=== PATIENT | female | born 1975 | race Caucasian/White ===

== ENCOUNTER 2018-12-04 21:42 | Emergency (ER) | payer SELFPAY ==
--- NOTE | 2018-12-04 21:59 | EDM.PDOC ---
ED HPI GENERAL MEDICAL PROBLEM - General Stated Complaint: BODYACHES AND COUGHING Time Seen by Provider: 12/04/18 21:44 Source of Information: Reports: Patient History Limitations: Reports: No Limitations - History of Present Illness INITIAL COMMENTS - FREE TEXT/NARRATIVE: HISTORY AND PHYSICAL: History of present illness: Patient is a 43-year-old female who presents to the emergency room with complaints of cough, body aches and generally feeling unwell 1 week. Patient does have a past medical history of asthma and is currently a half pack per day smoker. She states she has been taking cough and cold medication along with Mucinex and not getting much relief. She states she has been very tearful as the coughing is painful. Patient denies any fever, chills, headache, change in vision, syncope or near syncope. Denies any chest pain, back pain, shortness of breath. Denies any abdominal pain, nausea, vomiting, diarrhea, constipation or dysuria. Has not noted any blood in urine or stool. Review of systems: As per history of present illness and below otherwise all systems reviewed and negative. Past medical history: As per history of present illness and as reviewed below otherwise noncontributory. Surgical history: As per history of present illness and as reviewed below otherwise noncontributory. Social history: See social history for further information Family history: As per history of present illness and as reviewed below otherwise noncontributory. Physical exam: General: Well-developed and well nourished 43-year-old female. Alert and oriented. Nontoxic appearing and in no acute distress. HEENT: Atraumatic, normocephalic, pupils equal and reactive bilaterally, negative for conjunctival pallor or scleral icterus, mucous membranes moist, TMs normal bilaterally, throat clear, neck supple, nontender, trachea midline. No drooling or trismus noted. No meningeal signs. No hot potato voice noted. Lungs: Clear to auscultation, breath sounds equal bilaterally, chest nontender. Dry harsh nonproductive cough is noted. Heart: S1S2, regular rate and rhythm without overt murmur Abdomen: Soft, nondistended, nontender. Negative for masses or hepatosplenomegaly. Negative for costovertebral tenderness. Skin: Intact, warm, dry. No lesions or rashes noted. Extremities: Atraumatic, moves all extremities per self without difficulty or deficits, negative for cords or calf pain. Neurovascular unremarkable. Neuro: Awake, alert, oriented. Cranial nerves II through XII unremarkable. Cerebellum unremarkable. Motor and sensory unremarkable throughout. Exam nonfocal. Notes: Influenza screening and chest x-ray are negative. We discussed following up with their primary care provider. Supportive care measures were reviewed and discussed. Voices understanding and is agreeable to plan of care. Denies any further questions or concerns at this time. Diagnostics: CXR, Influenza Therapeutics: Phenergan w/ cod 5ml, Zithromax Prescription: Phenergan w/ cod (#4oz) Zpak Impression: Bronchitis Plan: 1. Please stop smoking 2. Take your medications as directed 3. Follow up with your primary care provider as we discussed. Return tot he ED as needed as discussed. Definitive disposition and diagnosis as appropriate pending reevaluation and review of above. generalized Pain Score (Numeric/FACES): 10 - Related Data Allergies Allergy/AdvReac Type Severity Reaction Status Date / Time No Known Allergies Allergy Verified 12/04/18 21:57 Home Meds: Home Meds . [No Known Home Meds] 12/04/18 [History] ED ROS GENERAL - Review of Systems Review Of Systems: ROS reveals no pertinent complaints other than HPI. ED EXAM, GENERAL - Physical Exam Exam: See Below (See dictation) Course - Vital Signs Last Recorded V/S: Last Vital Signs Temp 97.5 F 12/04/18 21:55 Pulse 96 12/04/18 21:55 Resp 18 12/04/18 21:55 BP 127/83 12/04/18 21:55 Pulse Ox 96 12/04/18 21:55 - Orders/Labs/Meds Orders: Active Orders 24 hr Category Date Time Status Chest 2V [CR] Stat Exams 12/04/18 21:44 Ordered Meds: Medications Discontinued Medications Generic Name Dose Route Start Last Admin Trade Name Freq PRN Reason Stop Dose Admin Azithromycin 500 mg 12/04/18 22:24 Zithromax PO 12/04/18 22:25 NOW STA Promethazine HCl/Codeine 5 ml 12/04/18 22:24 Phenergan With Codeine PO 12/04/18 22:25 NOW STA Departure - Departure Time of Disposition: 22:32 Disposition: Home, Self-Care 01 Clinical Impression: Bronchitis - Discharge Information Instructions: Acute Bronchitis, Adult, [id number] Additional Instructions: The following information is given to patients seen in the emergency department who are being discharged to home. This information is to outline your options for follow-up care. We provide all patients seen in our emergency department with a follow-up referral. The need for follow-up, as well as the timing and circumstances, are variable depending upon the specifics of your emergency department visit. If you don't have a primary care physician on staff, we will provide you with a referral. We always advise you to contact your personal physician following an emergency department visit to inform them of the circumstance of the visit and for follow-up with them and/or the need for any referrals to a consulting specialist. The emergency department will also refer you to a specialist when appropriate. This referral assures that you have the opportunity for follow-up care with a specialist. All of these measure are taken in an effort to provide you with optimal care, which includes your follow-up. Under all circumstances we always encourage you to contact your private physician who remains a resource for coordinating your care. When calling for follow-up care, please make the office aware that this follow-up is from your recent emergency room visit. If for any reason you are refused follow-up, please contact the [facility] Emergency Department at and asked to speak to the emergency department charge nurse. [facility] [address] [place] [id number] [place] [address] 1. Please stop smoking 2. Take your medications as directed 3. Follow up with your primary care provider as we discussed. Return tot he ED as needed as discussed. - My Orders Last 24 Hours: My Active Orders 12/04/18 21:44 Chest 2V [CR] Stat - Assessment/Plan Last 24 Hours: My Active Orders 12/04/18 21:44 Chest 2V [CR] Stat
[2018-12-04] MEDS ORDERED: Azithromycin 250 MG Tab PO STA (22:24)
[2018-12-04] MEDS ORDERED: Codeine/Promethazine 10-6.25 MG/5 ML Syrup 5 ML UD Cup PO STA (22:24)
--- NOTE | 2018-12-04 22:36 | CR ---
HISTORY: Cough and weakness. TECHNIQUE: Two views of the chest. COMPARISON: No prior. FINDINGS: Cardiac size and pulmonary vasculature are within normal limits. There is no acute lung infiltrate or pulmonary edema. No pneumothorax or pleural effusion. No acute bony abnormality. IMPRESSION: No acute disease. Dictated by Walt Doshi MD @ 12/04/2018 10:36:13 PM Dictated by: Walt Doshi MD @ 12/04/2018 22:36:18 (Electronically Signed)
== END 2018-12-04 23:00 | disposition home or self-care (01) ==
LOC: MW.ED 21:42
DX: J40 Bronchitis, not specified as acute or chronic (principal); F17.210 Nicotine dependence, cigarettes, uncomplicated
CPT/HCPCS: 71046; 87804; 99283; A9270

== ENCOUNTER 2019-05-30 08:40 | Inpatient (IN) | payer MEDICAID, OTHER ==
[2019-05-30] MEDS ORDERED: Sodium Chloride 0.9% 1,000 ML IV ONE (09:14)
--- NOTE | 2019-05-30 09:14 | EDM.PDOC ---
ED HPI GENERAL MEDICAL PROBLEM - General Chief Complaint: Gastrointestinal Problem Stated Complaint: THROWING UP BLOOD Time Seen by Provider: 05/30/19 08:58 Source of Information: Reports: Patient History Limitations: Reports: No Limitations - History of Present Illness INITIAL COMMENTS - FREE TEXT/NARRATIVE: This 44-year-old female presents the emergency room chief complaint of upper GI bleeding past hour. Patient is also complaining of black tarry stools for 1 day. The patient does not feel fever patient denies shortness of breath. Patient has a history of taking Motrin and aspirin. Patient is allergic to sulfa, hydrocodone and acetaminophen. Onset: Today Duration: Hour(s):, Resolved Prior to Arrival Location: Reports: Abdomen Severity: Moderate abdomen Pain Score (Numeric/FACES): 8 - Related Data Allergies Allergy/AdvReac Type Severity Reaction Status Date / Time acetaminophen [From [place]] Allergy Nausea and Verified 05/30/19 12:48 Vomiting hydrocodone [From [place]] Allergy Nausea and Verified 05/30/19 12:48 Vomiting oxycodone [From Percocet] Allergy Nausea and Verified 05/30/19 12:48 Vomiting Sulfa (Sulfonamide Allergy Abdominal Verified 05/30/19 12:48 Antibiotics) Pain Home Meds: Home Meds . [No Known Home Meds] 12/04/18 [History] Past Medical History HEENT History: Reports: None Cardiovascular History: Reports: None Respiratory History: Reports: Asthma Gastrointestinal History: Reports: None Genitourinary History: Reports: None [employer] History: Reports: None Musculoskeletal History: Reports: None Neurological History: Reports: None Psychiatric History: Reports: Anxiety, PTSD Endocrine/Metabolic History: Reports: None Insulin Pump Model and Alterations Sewer: None Hematologic History: Reports: None Immunologic History: Reports: None Oncologic (Cancer) History: Reports: None Dermatologic History: Reports: None - Infectious Disease History Infectious Disease History: Reports: C-Difficile - Past Surgical History Head Surgeries/Procedures: Reports: None HEENT Surgical History: Reports: Tonsillectomy Cardiovascular Surgical History: Reports: None Respiratory Surgical History: Reports: None GI Surgical History: Reports: Cholecystectomy Female Surgical History: Reports: Hysterectomy Endocrine Surgical History: Reports: None Neurological Surgical History: Reports: None Musculoskeletal Surgical History: Reports: None Oncologic Surgical History: Reports: None Dermatological Surgical History: Reports: None Social & Family History - Family History Family Medical History: Noncontributory - Tobacco Use Smoking Status *Q: Current Every Day Smoker Years of Tobacco use: 28 Packs/Tins Daily: 0.5 - Caffeine Use Caffeine Use: Reports: Coffee - Recreational Drug Use Recreational Drug Use: No ED ROS GENERAL - Review of Systems Review Of Systems: See Below ED EXAM, GI/ABD - Physical Exam Exam: See Below Exam Limited By: No Limitations General Appearance: Alert, WD/WN, No Apparent Distress, Anxious Eyes: Bilateral: Normal Appearance Ears: Normal External Exam, Normal Canal, Hearing Grossly Normal, Normal TMs Throat/Mouth: Normal Inspection, Normal Lips Head: Atraumatic, Normocephalic Neck: Normal Inspection, Supple, Non-Tender Respiratory/Chest: No Respiratory Distress, Lungs Clear, Normal Breath Sounds Cardiovascular: Normal Peripheral Pulses, Regular Rate, Rhythm GI/Abdominal Exam: Normal Bowel Sounds, Soft, Non-Tender, No Distention, No Abnormal Bruit, No Mass Rectal (Female) Exam: Normal Rectal Tone, Heme + Stool, Hemorrhoids Back Exam: Normal Inspection, Full Range of Motion Extremities: Normal Inspection, Normal Range of Motion, No Pedal Edema, Normal Capillary Refill Neurological: Alert, Oriented, CN II-XII Intact, Normal Cognition, Normal Gait, Normal Reflexes, No Motor/Sensory Deficits Psychiatric: Normal Affect, Normal Mood Skin Exam: Warm, Dry, Intact, Normal Color Lymphatic: No Adenopathy Course - Vital Signs Text/Narrative:: This is a 44-year-old female who presents the emergency room with a chief complaint of vomiting blood. Patient's risk factors for upper GI bleeding include taking Motrin and aspirin. Patient admits to some abdominal pain and nausea and dark stool. Exam patient has minimal abdomiNal pain Exam strongly guaiac positive patient has external hemorrhoids that are not bleeding. Has a orthostatic blood pressure with pressures well 60/40 while standing of blood with a heart rate of 110. Patient's sitting blood pressure is 120/80 with a heart rate of [address] Garcia he suggested admission to telemetry. Diagnosis upper GI bleed Last Recorded V/S: Last Vital Signs Temp 98.4 F 05/30/19 16:07 Pulse 88 05/30/19 16:07 Resp 16 05/30/19 16:07 BP 109/68 05/30/19 16:07 Pulse Ox 91 L 05/30/19 16:07 Orthostatic Blood Pressure [ 67/38 Standing] Orthostatic Blood Pressure [ 112/75 Sitting] Orthostatic Blood Pressure [ 108/75 Supine] - Orders/Labs/Meds Orders: Active Orders 24 hr Category Date Time Status Admission Status [Patient Status] [ADT] Stat ADT 05/30/19 11:28 Active Orthostatic Vital Signs [RC] ASDIRECTED Care 05/30/19 10:33 Active TYPE AND SCREEN [BBK] Stat Lab 05/30/19 11:43 Results Medication Orders Sodium Chloride (Normal Saline) 1,000 mls @ 125 mls/hr IV Q8H NATALIO Last Admin: 05/30/19 15:03 Dose: 125 mls/hr Morphine Sulfate (Morphine) 2 mg IVPUSH Q4H PRN PRN Reason: Pain Last Admin: 05/30/19 17:34 Dose: 2 mg Ondansetron HCl (Zofran) 4 mg IVPUSH Q4H PRN PRN Reason: Nausea Pantoprazole Sodium (Protonix Iv) 40 mg IV Q12HR NATALIO Sumatriptan Succinate (Imitrex) 6 mg SUBCUT Q2H PRN PRN Reason: migraine Last Admin: 05/30/19 17:35 Dose: 6 mg Labs: Laboratory Tests 05/30/19 05/30/19 05/30/19 Range/Units 08:47 08:47 09:54 WBC 14.50 H (4.0-11.0) K/uL RBC 4.36 (4.30-5.90) M/uL Hgb 12.3 (12.0-16.0) g/dL Hct 38.2 (36.0-46.0) % MCV 87.6 (80.0-98.0) fL MCH 28.2 (27.0-32.0) pg MCHC 32.2 (31.0-37.0) g/dL RDW Std Deviation 39.9 (28.0-62.0) fl RDW Coeff of Carmen 12 (11.0-15.0) % Plt Count 288 (150-400) K/uL MPV 11.60 (7.40-12.00) fL Neut % (Auto) 80.4 H (48.0-80.0) % Lymph % (Auto) 14.4 L (16.0-40.0) % [place] % (Auto) 4.9 (0.0-15.0) % Eos % (Auto) 0.2 (0.0-7.0) % Baso % (Auto) 0.1 (0.0-1.5) % Neut # (Auto) 11.7 H (1.4-5.7) K/uL Lymph # (Auto) 2.1 (0.6-2.4) K/uL [place] # (Auto) 0.7 (0.0-0.8) K/uL Eos # (Auto) 0.0 (0.0-0.7) K/uL Baso # (Auto) 0.0 (0.0-0.1) K/uL Nucleated RBC % 0.0 /100WBC Nucleated RBCs # 0 K/uL Sodium 144 (136-145) mmol/L Potassium 4.3 (3.5-5.1) mmol/L Chloride 105 (98-107) mmol/L Carbon Dioxide 28.9 (21.0-32.0) mmol/L BUN 40 H (7.0-18.0) mg/dL Creatinine 0.7 (0.6-1.0) mg/dL Est Cr Clr Drug Dosing 89.48 mL/min Estimated GFR (MDRD) > 60.0 ml/min Glucose 87 (74-106) mg/dL Calcium 8.4 L (8.5-10.1) mg/dL Total Bilirubin 0.3 (0.2-1.0) mg/dL AST 19 (15-37) IU/L ALT 23 (14-63) IU/L Alkaline Phosphatase 78 (46-116) U/L Total Protein 6.8 (6.4-8.2) g/dL Albumin 3.5 (3.4-5.0) g/dL Globulin 3.3 (2.6-4.0) g/dL Albumin/Globulin Ratio 1.1 (0.9-1.6) Urine Color Urine Appearance Urine pH (5.0-8.0) Ur Specific [place] (1.001-1.035) Urine Protein (NEGATIVE) mg/dL Urine Glucose (UA) (NEGATIVE) mg/dL Urine Ketones (NEGATIVE) mg/dL Urine Occult Blood (NEGATIVE) Urine Nitrite (NEGATIVE) Urine Bilirubin (NEGATIVE) Urine Urobilinogen (<2.0) EU/dL Ur Leukocyte Esterase (NEGATIVE) Urine HCG, Qual NEGATIVE (NEGATIVE) Blood Type Antibody Screen Crossmatch 05/30/19 05/30/19 Range/Units 09:54 11:43 WBC (4.0-11.0) K/uL RBC (4.30-5.90) M/uL Hgb (12.0-16.0) g/dL Hct (36.0-46.0) % MCV (80.0-98.0) fL MCH (27.0-32.0) pg MCHC (31.0-37.0) g/dL RDW Std Deviation (28.0-62.0) fl RDW Coeff of Carmen (11.0-15.0) % Plt Count (150-400) K/uL MPV (7.40-12.00) fL Neut % (Auto) (48.0-80.0) % Lymph % (Auto) (16.0-40.0) % [place] % (Auto) (0.0-15.0) % Eos % (Auto) (0.0-7.0) % Baso % (Auto) (0.0-1.5) % Neut # (Auto) (1.4-5.7) K/uL Lymph # (Auto) (0.6-2.4) K/uL [place] # (Auto) (0.0-0.8) K/uL Eos # (Auto) (0.0-0.7) K/uL Baso # (Auto) (0.0-0.1) K/uL Nucleated RBC % /100WBC Nucleated RBCs # K/uL Sodium (136-145) mmol/L Potassium (3.5-5.1) mmol/L Chloride (98-107) mmol/L Carbon Dioxide (21.0-32.0) mmol/L BUN (7.0-18.0) mg/dL Creatinine (0.6-1.0) mg/dL Est Cr Clr Drug Dosing mL/min Estimated GFR (MDRD) ml/min Glucose (74-106) mg/dL Calcium (8.5-10.1) mg/dL Total Bilirubin (0.2-1.0) mg/dL AST (15-37) IU/L ALT (14-63) IU/L Alkaline Phosphatase (46-116) U/L Total Protein (6.4-8.2) g/dL Albumin (3.4-5.0) g/dL Globulin (2.6-4.0) g/dL Albumin/Globulin Ratio (0.9-1.6) Urine Color YELLOW Urine Appearance CLEAR Urine pH 7.0 (5.0-8.0) Ur Specific [place] 1.015 (1.001-1.035) Urine Protein NEGATIVE (NEGATIVE) mg/dL Urine Glucose (UA) NEGATIVE (NEGATIVE) mg/dL Urine Ketones NEGATIVE (NEGATIVE) mg/dL Urine Occult Blood NEGATIVE (NEGATIVE) Urine Nitrite NEGATIVE (NEGATIVE) Urine Bilirubin NEGATIVE (NEGATIVE) Urine Urobilinogen 0.2 (<2.0) EU/dL Ur Leukocyte Esterase NEGATIVE (NEGATIVE) Urine HCG, Qual (NEGATIVE) Blood Type A NEGATIVE Antibody Screen NEGATIVE Crossmatch See Detail Meds: Medications Generic Name Dose Route Start Last Admin Trade Name Freq PRN Reason Stop Dose Admin Sodium Chloride 1,000 mls @ 125 mls/hr 05/30/19 14:45 05/30/19 15:03 Normal Saline IV 125 mls/hr Q8H NATALIO Administration Morphine Sulfate 2 mg 05/30/19 16:11 05/30/19 17:34 Morphine IVPUSH 2 mg Q4H PRN Administration Pain Ondansetron HCl 4 mg 05/30/19 14:33 Zofran IVPUSH Q4H PRN Nausea Pantoprazole Sodium 40 mg 05/30/19 21:00 Protonix Iv IV Q12HR NATALIO Sumatriptan Succinate 6 mg 05/30/19 16:11 05/30/19 17:35 Imitrex SUBCUT 6 mg Q2H PRN Administration migraine Discontinued Medications Generic Name Dose Route Start Last Admin Trade Name Freq PRN Reason Stop Dose Admin Famotidine 20 mg 05/30/19 11:14 05/30/19 11:33 Pepcid IVPUSH 05/30/19 11:15 20 mg ONETIME ONE Administration Sodium Chloride 1,000 mls @ 1,000 mls/hr 05/30/19 09:14 05/30/19 09:36 Normal Saline IV 05/30/19 10:13 1,000 mls/hr .Bolus ONE Administration Sodium Chloride 1,000 mls @ 50 mls/hr 05/30/19 14:45 Normal Saline IV Q20H [facility] Ondansetron HCl 4 mg 05/30/19 09:15 05/30/19 09:36 Zofran IVPUSH 05/30/19 09:16 4 mg ONETIME ONE Administration Departure - Departure Time of Disposition: 18:11 Disposition: Admitted As Inpatient 67 Clinical Impression: Upper gastrointestinal bleed - Discharge Information Sepsis Event Note - Evaluation Sepsis Screening Result: No Definite Risk - Focused Exam Vital Signs: Vital Signs Temp Pulse Resp BP Pulse Ox 05/30/19 11:35 89 16 99/62 99 05/30/19 10:44 99 18 96/61 97 05/30/19 08:54 97.9 F 105 H 18 121/65 97 Date Exam was Performed: 05/30/19 Time Exam was Performed: 18:11 - My Orders Last 24 Hours: My Active Orders 05/30/19 10:33 Orthostatic Vital Signs [RC] ASDIRECTED 05/30/19 11:28 Admission Status [Patient Status] [ADT] Stat 05/30/19 11:43 TYPE AND SCREEN [BBK] Stat - Assessment/Plan Last 24 Hours: My Active Orders 05/30/19 10:33 Orthostatic Vital Signs [RC] ASDIRECTED 05/30/19 11:28 Admission Status [Patient Status] [ADT] Stat 05/30/19 11:43 TYPE AND SCREEN [BBK] Stat
[2019-05-30] MEDS ORDERED: Ondansetron 4 MG/2 ML SDV IVPUSH ONE (09:15)
[2019-05-30 09:31] LABS: BLOOD UREA NITROGEN,BUN 40 mg/dL (7.0-18.0); CARBON DIOXIDE,CO2 28.9 mmol/L (21.0-32.0); CHLORIDE,CL 105 mmol/L (98-107); GLUCOSE RANDOM 87 mg/dL (74-106); POTASSIUM,K 4.3 mmol/L (3.5-5.1); SODIUM,NA 144 mmol/L (136-145)
--- NOTE | 2019-05-30 10:14 | CR ---
Chest: Frontal view of the chest was obtained. Comparison: No prior chest imaging is available. Heart size and mediastinum are within normal limits. Lungs show no acute parenchymal change. Bony structures are grossly intact. Impression: 1. Nothing acute is appreciated on frontal chest x-ray. Diagnostic code #1 This report was dictated in MDT
--- NOTE | 2019-05-30 10:24 | CT ---
CT abdomen and pelvis Technique: Multiple axial sections were obtained from above the dome of the diaphragm inferiorly through the pubic symphysis. Intravenous and oral contrast was not utilized. Comparison: No prior abdominal imaging. Findings: Visualized lung bases show nothing acute. Bilateral breast prosthesis are noted. Liver shows no focal parenchymal abnormality. Spleen appears normal. Small hiatal hernia is noted. Adrenal glands show no nodule. Pancreas shows no discrete abnormality. Surgical clips are seen from prior cholecystectomy. Kidneys show no abnormal calcifications. No hydronephrosis is appreciated. Aorta shows no aneurysm. No retroperitoneal adenopathy or mesenteric abnormalities are seen. No pelvic mass or adenopathy is seen. No free fluid or inflammatory change is seen. Bone window settings were reviewed which shows disc space narrowing and vacuum phenomena within the L5-S1 disc. Appendix is seen and is normal in size. Impression: 1. Nothing acute is appreciated on noncontrast CT study of the abdomen and pelvis. Diagnostic code #2 This report was dictated in MDT
[2019-05-30] MEDS ORDERED: Famotidine 20 MG/2 ML SDV IVPUSH ONE (11:14)
--- NOTE | 2019-05-30 14:44 | PCM.HP.2 ---
H&P History of Present Illness - General Date of Service: 05/30/19 Admit Problem/Dx: Admission Diagnosis/Problem Admission Diagnosis/Problem GI bleed not requiring more than 4 units of blood in 24 hours, ICU, or surgery Source of Information: Patient History Limitations: Reports: No Limitations - History of Present Illness Initial Comments - Free Text/Narative: This 44 year old female with little pmh presented to the ED with complaints of black tarry stools, bloody emesis and mild abdominal pain. She reports the stools started last evening that were black and tarry which scared her, she also had bloody emesis today. She reports dizziness and lightheadedness when she standing up. She reports mild left upper/lower abdominal pain, that is dull in nature. She denies SOB or fevers. No chest pain. No urinary concerns. She reports she has been taking NSAIDs daily at home for back pain and headaches. She denies alcohol use. No recreational drug use. Smokes 1/2 ppd no vaping. In the ED leukocytosis noted at 14,500. Hgb 12.3 and hct 38. BUN elevated at 40. CT of abdomen and pelvis negative, no acute findings. Hemoccult in ED positive. Significant orthostatic hypotension noted. She was given 1 L NS in the ED along with Pepcid. She will be admitted inpatient for acute upper GI bleeding. Dr Newberry consulted. Headache Pain Score (Numeric/FACES): 9 abdomen Pain Score (Numeric/FACES): 7 - Related Data Allergies/Adverse Reactions: Allergies Allergy/AdvReac Type Severity Reaction Status Date / Time acetaminophen [From [place]] Allergy Nausea and Verified 05/30/19 12:48 Vomiting hydrocodone [From [place]] Allergy Nausea and Verified 05/30/19 12:48 Vomiting oxycodone [From Percoc[place]] Allergy Nausea and Verified 05/30/19 12:48 Vomiting Sulfa (Sulfonamide Allergy Abdominal Verified 05/30/19 12:48 Antibiotics) Pain Home Medications: Home Meds . [No Known Home Meds] 12/04/18 [History] Past Medical History HEENT History: Reports: None Cardiovascular History: Reports: None. Denies: CAD, [place] Respiratory History: Reports: Asthma. Denies: COPD Gastrointestinal History: Reports: None. Denies: GERD, Hemorrhoids Genitourinary History: Reports: None. Denies: Chronic Renal Insuffiency TIME STUDY ENGINEER History: Reports: None Musculoskeletal History: Reports: None Neurological History: Reports: None. Denies: CVA, TIA Psychiatric History: Reports: Anxiety, PTSD Endocrine/Metabolic History: Reports: None. Denies: Diabetes, Type II, Obesity/ BMI 30+ Insulin Pump Model and Furnace Feeder: None Hematologic History: Reports: None Immunologic History: Reports: None Oncologic (Cancer) History: Reports: None Dermatologic History: Reports: None - Infectious Disease History Infectious Disease History: Reports: C-Difficile - Past Surgical History Head Surgeries/Procedures: Reports: None HEENT Surgical History: Reports: Tonsillectomy Cardiovascular Surgical History: Reports: None Respiratory Surgical History: Reports: None GI Surgical History: Reports: Cholecystectomy Female Surgical History: Reports: Hysterectomy Endocrine Surgical History: Reports: None Neurological Surgical History: Reports: None Musculoskeletal Surgical History: Reports: None Oncologic Surgical History: Reports: None Dermatological Surgical History: Reports: None Social & Family History - Family History Family Medical History: Noncontributory - Tobacco Use Smoking Status *Q: Current Every Day Smoker Years of Tobacco use: 30 Packs/Tins Daily: 0.5 - Caffeine Use Caffeine Use: Reports: Coffee Caffeine Use Comment: Cup of coffee a day - Alcohol Use Alcohol Use History: No - Recreational Drug Use Recreational Drug Use: No - Living Situation & Occupation Occupation: Employed ([employer]) H&P Review of Systems - Review of Systems: Review Of Systems: See Below General: Reports: Weakness, Fatigue. Denies: Fever, Chills, Malaise HEENT: Reports: Vertigo. Denies: Headaches, Sinus Congestion Pulmonary: Reports: No Symptoms. Denies: Shortness of Breath, Cough, Sputum Cardiovascular: Reports: Lightheadedness. Denies: Chest Pain, Syncope Gastrointestinal: Reports: Abdominal Pain (LUQ and LLQ), Black Stool, Hematemesis. Denies: Bloody Stool, Nausea, Vomiting Genitourinary: Reports: No Symptoms. Denies: Dysuria, Frequency, Burning Musculoskeletal: Reports: No Symptoms Skin: Reports: No Symptoms Psychiatric: Reports: No Symptoms Neurological: Reports: No Symptoms Hematologic/Lymphatic: Reports: No Symptoms Immunologic: Reports: No Symptoms Exam - Exam Exam: See Below - Vital Signs Vital Signs: Last Vital Signs Temp 97.4 F 03/31/20 12:45 Pulse 91 05/30/19 12:45 Resp 15 05/30/19 12:45 BP 111/76 05/30/19 12:45 Pulse Ox 99 05/30/19 12:45 Orthostatic Blood Pressure [ 67/38 Standing] Orthostatic Blood Pressure [ 112/75 Sitting] Orthostatic Blood Pressure [ 108/75 Supine] Weight: 56.608 kg - Exam General: Alert, Oriented, Cooperative HEENT: Conjunctiva Clear Lungs: Clear to Auscultation, Normal Respiratory Effort Cardiovascular: Regular Rate, Regular Rhythm GI/Abdominal Exam: Normal Bowel Sounds, Soft, Tender (slight tenderness to LLQ) Back Exam: Normal Inspection, Full Range of Motion Extremities: Normal Inspection, Normal Range of Motion, Non-Tender, No Pedal Edema Neuro Extensive - Mental Status: Alert, Oriented x3 Neuro Extensive - Motor, Sensory, Reflexes: CN II-XII Intact Psychiatric: Alert, Normal Affect, Normal Mood - Patient Data Lab Results Last 24 hrs: Laboratory Results - last 24 hr 05/30/19 05/30/19 05/30/19 Range/Units 08:47 08:47 09:54 WBC 14.50 H (4.0-11.0) K/uL RBC 4.36 (4.30-5.90) M/uL Hgb 12.3 (12.0-16.0) g/dL Hct 38.2 (36.0-46.0) % MCV 87.6 (80.0-98.0) fL MCH 28.2 (27.0-32.0) pg MCHC 32.2 (31.0-37.0) g/dL RDW Std Deviation 39.9 (28.0-62.0) fl RDW Coeff of [place] 12 (11.0-15.0) % Plt Count 288 (150-400) K/uL MPV 11.60 (7.40-12.00) fL Neut % (Auto) 80.4 H (48.0-80.0) % Lymph % (Auto) 14.4 L (16.0-40.0) % [place] % (Auto) 4.9 (0.0-15.0) % Eos % (Auto) 0.2 (0.0-7.0) % Baso % (Auto) 0.1 (0.0-1.5) % Neut # (Auto) 11.7 H (1.4-5.7) K/uL Lymph # (Auto) 2.1 (0.6-2.4) K/uL [place] # (Auto) 0.7 (0.0-0.8) K/uL Eos # (Auto) 0.0 (0.0-0.7) K/uL Baso # (Auto) 0.0 (0.0-0.1) K/uL Nucleated RBC % 0.0 /100WBC Nucleated RBCs # 0 K/uL Sodium 144 (136-145) mmol/L Potassium 4.3 (3.5-5.1) mmol/L Chloride 105 (98-107) mmol/L Carbon Dioxide 28.9 (21.0-32.0) mmol/L BUN 40 H (7.0-18.0) mg/dL Creatinine 0.7 (0.6-1.0) mg/dL Est Cr Clr Drug Dosing 89.48 mL/min Estimated GFR (MDRD) > 60.0 ml/min Glucose 87 (74-106) mg/dL Calcium 8.4 L (8.5-10.1) mg/dL Total Bilirubin 0.3 (0.2-1.0) mg/dL AST 19 (15-37) IU/L ALT 23 (14-63) IU/L Alkaline Phosphatase 78 (46-116) U/L Total Protein 6.8 (6.4-8.2) g/dL Albumin 3.5 (3.4-5.0) g/dL Globulin 3.3 (2.6-4.0) g/dL Albumin/Globulin Ratio 1.1 (0.9-1.6) Urine Color Urine Appearance Urine pH (5.0-8.0) Ur Specific [place] (1.001-1.035) Urine Protein (NEGATIVE) mg/dL Urine Glucose (UA) (NEGATIVE) mg/dL Urine Ketones (NEGATIVE) mg/dL Urine Occult Blood (NEGATIVE) Urine Nitrite (NEGATIVE) Urine Bilirubin (NEGATIVE) Urine Urobilinogen (<2.0) EU/dL Ur Leukocyte Esterase (NEGATIVE) Urine HCG, Qual NEGATIVE (NEGATIVE) Blood Type Antibody Screen 05/30/19 05/30/19 Range/Units 09:54 11:43 WBC (4.0-11.0) K/uL RBC (4.30-5.90) M/uL Hgb (12.0-16.0) g/dL Hct (36.0-46.0) % MCV (80.0-98.0) fL MCH (27.0-32.0) pg MCHC (31.0-37.0) g/dL RDW Std Deviation (28.0-62.0) fl RDW Coeff of [place] (11.0-15.0) % Plt Count (150-400) K/uL MPV (7.40-12.00) fL Neut % (Auto) (48.0-80.0) % Lymph % (Auto) (16.0-40.0) % [place] % (Auto) (0.0-15.0) % Eos % (Auto) (0.0-7.0) % Baso % (Auto) (0.0-1.5) % Neut # (Auto) (1.4-5.7) K/uL Lymph # (Auto) (0.6-2.4) K/uL [place] # (Auto) (0.0-0.8) K/uL Eos # (Auto) (0.0-0.7) K/uL Baso # (Auto) (0.0-0.1) K/uL Nucleated RBC % /100WBC Nucleated RBCs # K/uL Sodium (136-145) mmol/L Potassium (3.5-5.1) mmol/L Chloride (98-107) mmol/L Carbon Dioxide (21.0-32.0) mmol/L BUN (7.0-18.0) mg/dL Creatinine (0.6-1.0) mg/dL Est Cr Clr Drug Dosing mL/min Estimated GFR (MDRD) ml/min Glucose (74-106) mg/dL Calcium (8.5-10.1) mg/dL Total Bilirubin (0.2-1.0) mg/dL AST (15-37) IU/L ALT (14-63) IU/L Alkaline Phosphatase (46-116) U/L Total Protein (6.4-8.2) g/dL Albumin (3.4-5.0) g/dL Globulin (2.6-4.0) g/dL Albumin/Globulin Ratio (0.9-1.6) Urine Color YELLOW Urine Appearance CLEAR Urine pH 7.0 (5.0-8.0) Ur Specific [place] 1.015 (1.001-1.035) Urine Protein NEGATIVE (NEGATIVE) mg/dL Urine Glucose (UA) NEGATIVE (NEGATIVE) mg/dL Urine Ketones NEGATIVE (NEGATIVE) mg/dL Urine Occult Blood NEGATIVE (NEGATIVE) Urine Nitrite NEGATIVE (NEGATIVE) Urine Bilirubin NEGATIVE (NEGATIVE) Urine Urobilinogen 0.2 (<2.0) EU/dL Ur Leukocyte Esterase NEGATIVE (NEGATIVE) Urine HCG, Qual (NEGATIVE) Blood Type A NEGATIVE Antibody Screen NEGATIVE Result Diagrams: 05/30/19 15:02 05/30/19 08:47 Sepsis Event Note - Evaluation Sepsis Screening Result: No Definite Risk - Focused Exam Vital Signs: Vital Signs Temp Temp Pulse Resp BP Pulse Ox 05/30/19 12:45 97.4 F 91 15 111/76 99 05/30/19 11:35 89 16 99/62 99 05/30/19 10:44 99 18 96/61 97 05/30/19 08:54 97.9 F 105 H 18 121/65 97 Date Exam was Performed: 05/30/19 Time Exam was Performed: 16:14 - Problem List (1) GI bleed SNOMED Code(s): 76738937 ICD Code: K92.2 - GASTROINTESTINAL HEMORRHAGE, UNSPECIFIED Status: Acute Current Visit: Yes (2) History of asthma SNOMED Code(s): 621923044 ICD Code: Z87.09 - PERSONAL HISTORY OF OTHER DISEASES OF THE RESPIRATORY SYSTEM Status: Chronic Current Visit: Yes Problem List Initiated/Reviewed/Updated: No Orders Last 24hrs: Active Orders 24 hr Category Date Time Status Admission Status [Patient Status] [ADT] Stat ADT 05/30/19 11:28 Active Antiembolic Devices [RC] PER UNIT ROUTINE Care 05/30/19 14:35 Active Notify Provider Consults [RC] ASDIRECTED Care 05/30/19 14:38 Active Orthostatic Vital Signs [RC] ASDIRECTED Care 05/30/19 10:33 Active Oxygen Therapy [RC] PRN Care 05/30/19 14:33 Active Telemetry Monitoring [Cardiac Monitoring] [RC] . Care 05/30/19 14:36 Active DIRECTED Up With Assistance [RC] ASDIRECTED Care 05/30/19 14:33 Active VTE/DVT Education [RC] PER UNIT ROUTINE Care 05/30/19 14:33 Active Vital Signs [RC] Q4H Care 05/30/19 14:33 Active Consult to Physician [CONS] Routine Cons 05/30/19 14:38 Active Nothing per Oral Now Diet [DIET] Diet 05/30/19 Lunch Active BASIC METABOLIC PANEL,BMP [CHEM] AM Lab 05/31/19 05:11 Ordered CBC WITH AUTO DIFF [HEME] AM Lab 05/31/19 05:11 Ordered HEMOGLOBIN/HEMATOCRIT,HH [HEME] Timed Lab 05/30/19 14:45 Ordered Ondansetron [Zofran] Med 05/30/19 14:33 Ordered 4 mg IVPUSH Q4H PRN Pantoprazole [ProTONIX IV] Med 05/30/19 21:00 Ordered 40 mg IV Q12HR Sodium Chloride 0.9% [Normal Saline] 1,000 ml Med 05/30/19 14:45 Ordered IV Q8H Sequential Compression Device [OM.PC] Per Unit Routine Oth 05/30/19 14:34 Ordered Resuscitation Status Routine Resus Stat 05/30/19 14:33 Ordered Medication Orders Sodium Chloride (Normal Saline) 1,000 mls @ 125 mls/hr IV Q8H NATALIO Ondansetron HCl (Zofran) 4 mg IVPUSH Q4H PRN PRN Reason: Nausea Pantoprazole Sodium (Protonix Iv) 40 mg IV Q12HR NATALIO Assessment/Plan Comment:: This 44 year old female admitted with GI bleed 1. GI Bleeding: - repeat HH 11.6/35.5 - Monitor HH every 6 hours. - IVFs NS 125 due to orthostasis - NPO - Protonix 40 mg IV BID - HOLD NSAIDs - Check H pylori stool antigen - Type and Screen - Counseled on NSAID use and smoking. VTE prophylaxis: SDCs Dispo: 2-3 days pending improvement - Mortality Measure Prognosis:: Good
[2019-05-30] MEDS ORDERED: Sodium Chloride 0.9% 1,000 ML IV SCH (14:45)
[2019-05-30] MEDS: Sodium Chloride 0.9% 1,000 ML IV SCH ×2 (15:03→21:56)
--- NOTE | 2019-05-30 16:07 | PCM.CONS ---
H&P History of Present Illness - General Date of Service: 05/30/19 Admit Problem/Dx: Admission Diagnosis/Problem Admission Diagnosis/Problem GI bleed not requiring more than 4 units of blood in 24 hours, ICU, or surgery Source of Information: Patient History Limitations: Reports: No Limitations - History of Present Illness Initial Comments - Free Text/Narative: Patient is a 44 year old female who presented to the ER with melena and hematemesis. She has been taking a significant amount of Motrin due to back pain. She developed symptoms last night. She complained of epigastric discomfort. She has never had this happen before. She came into the ER today. She had symptomatic orthostasis with mild tachycardia. Her hgb on admission was 12.3 and on recheck was 11.6. CT abdomen/pelvis was unremarkable. She was admitted to the medicine team. She was kept NPO, started on IVF, and given an IV PPI. Headache Pain Score (Numeric/FACES): 9 abdomen Pain Score (Numeric/FACES): 7 - Related Data Allergies/Adverse Reactions: Allergies Allergy/AdvReac Type Severity Reaction Status Date / Time acetaminophen [From [place]] Allergy Nausea and Verified 05/30/19 12:48 Vomiting hydrocodone [From [place]] Allergy Nausea and Verified 05/30/19 12:48 Vomiting oxycodone [From [place]erc[place]] Allergy Nausea and Verified 05/30/19 12:48 Vomiting Sulfa (Sulfonamide Allergy Abdominal Verified 05/30/19 12:48 Antibiotics) Pain Home Medications: Home Meds . [No Known Home Meds] 12/04/18 [History] Past Medical History HEENT History: Reports: None Cardiovascular History: Reports: None. Denies: CAD, [place] Respiratory History: Reports: Asthma. Denies: COPD Gastrointestinal History: Reports: None. Denies: GERD, Hemorrhoids Genitourinary History: Reports: None. Denies: Chronic Renal Insuffiency PAPER SHEETER History: Reports: None Musculoskeletal History: Reports: None Neurological History: Reports: None. Denies: CVA, TIA Psychiatric History: Reports: Anxiety, PTSD Endocrine/Metabolic History: Reports: None. Denies: Diabetes, Type II, Obesity/ BMI 30+ Insulin Pump Model and Business Strategy Manager: None Hematologic History: Reports: None Immunologic History: Reports: None Oncologic (Cancer) History: Reports: None Dermatologic History: Reports: None - Infectious Disease History Infectious Disease History: Reports: C-Difficile - Past Surgical History Head Surgeries/Procedures: Reports: None HEENT Surgical History: Reports: Tonsillectomy Cardiovascular Surgical History: Reports: None Respiratory Surgical History: Reports: None GI Surgical History: Reports: Cholecystectomy Female Surgical History: Reports: Hysterectomy Endocrine Surgical History: Reports: None Neurological Surgical History: Reports: None Musculoskeletal Surgical History: Reports: None Oncologic Surgical History: Reports: None Dermatological Surgical History: Reports: None Social & Family History - Family History Family Medical History: Noncontributory - Tobacco Use Smoking Status *Q: Current Every Day Smoker Years of Tobacco use: 30 Packs/Tins Daily: 0.5 - Caffeine Use Caffeine Use: Reports: Coffee Caffeine Use Comment: Cup of coffee a day - Recreational Drug Use Recreational Drug Use: No - Living Situation & Occupation Occupation: Employed ([employer]) H&P Review of Systems - Review of Systems: Review Of Systems: See Below Exam - Exam Exam: See Below - Vital Signs Vital Signs: Last Vital Signs Temp 36.3 C 05/30/19 12:45 Pulse 91 05/30/19 12:45 Resp 15 05/30/19 12:45 BP 111/76 05/30/19 12:45 Pulse Ox 99 05/30/19 12:45 Orthostatic Blood Pressure [ 67/38 Standing] Orthostatic Blood Pressure [ 112/75 Sitting] Orthostatic Blood Pressure [ 108/75 Supine] Weight: 56.608 kg - Exam General: Alert, Oriented HEENT: Conjunctiva Clear, Mucosa Moist & Volin, Posterior Pharynx Clear Lungs: Clear to Auscultation, Normal Respiratory Effort Cardiovascular: Regular Rate, Regular Rhythm GI/Abdominal Exam: Soft, Non-Tender, No Distention, No Mass Rectal (Female) Exam: Normal Exam, Normal Rectal Tone, Other (No stool in the rectal vault. ) Back Exam: Normal Inspection Extremities: Normal Inspection Skin: Warm, Dry, Intact Neuro Extensive - Mental Status: Alert, Oriented x3 Psychiatric: Alert, Normal Affect, Normal Mood - Patient Data Lab Results Last 24 hrs: Laboratory Results - last 24 hr 05/30/19 05/30/19 05/30/19 Range/Units 08:47 08:47 09:54 WBC 14.50 H (4.0-11.0) K/uL RBC 4.36 (4.30-5.90) M/uL Hgb 12.3 (12.0-16.0) g/dL Hct 38.2 (36.0-46.0) % MCV 87.6 (80.0-98.0) fL MCH 28.2 (27.0-32.0) pg MCHC 32.2 (31.0-37.0) g/dL RDW Std Deviation 39.9 (28.0-62.0) fl RDW Coeff of Carmen 12 (11.0-15.0) % Plt Count 288 (150-400) K/uL MPV 11.60 (7.40-12.00) fL Neut % (Auto) 80.4 H (48.0-80.0) % Lymph % (Auto) 14.4 L (16.0-40.0) % [place] % (Auto) 4.9 (0.0-15.0) % Eos % (Auto) 0.2 (0.0-7.0) % Baso % (Auto) 0.1 (0.0-1.5) % Neut # (Auto) 11.7 H (1.4-5.7) K/uL Lymph # (Auto) 2.1 (0.6-2.4) K/uL [place] # (Auto) 0.7 (0.0-0.8) K/uL Eos # (Auto) 0.0 (0.0-0.7) K/uL Baso # (Auto) 0.0 (0.0-0.1) K/uL Nucleated RBC % 0.0 /100WBC Nucleated RBCs # 0 K/uL Sodium 144 (136-145) mmol/L Potassium 4.3 (3.5-5.1) mmol/L Chloride 105 (98-107) mmol/L Carbon Dioxide 28.9 (21.0-32.0) mmol/L BUN 40 H (7.0-18.0) mg/dL Creatinine 0.7 (0.6-1.0) mg/dL Est Cr Clr Drug Dosing 89.48 mL/min Estimated GFR (MDRD) > 60.0 ml/min Glucose 87 (74-106) mg/dL Calcium 8.4 L (8.5-10.1) mg/dL Total Bilirubin 0.3 (0.2-1.0) mg/dL AST 19 (15-37) IU/L ALT 23 (14-63) IU/L Alkaline Phosphatase 78 (46-116) U/L Total Protein 6.8 (6.4-8.2) g/dL Albumin 3.5 (3.4-5.0) g/dL Globulin 3.3 (2.6-4.0) g/dL Albumin/Globulin Ratio 1.1 (0.9-1.6) Urine Color Urine Appearance Urine pH (5.0-8.0) Ur Specific [place] (1.001-1.035) Urine Protein (NEGATIVE) mg/dL Urine Glucose (UA) (NEGATIVE) mg/dL Urine Ketones (NEGATIVE) mg/dL Urine Occult Blood (NEGATIVE) Urine Nitrite (NEGATIVE) Urine Bilirubin (NEGATIVE) Urine Urobilinogen (<2.0) EU/dL Ur Leukocyte Esterase (NEGATIVE) Urine HCG, Qual NEGATIVE (NEGATIVE) Blood Type Antibody Screen Crossmatch 05/30/19 05/30/19 05/30/19 Range/Units 09:54 11:43 15:02 WBC (4.0-11.0) K/uL RBC (4.30-5.90) M/uL Hgb 11.6 L (12.0-16.0) g/dL Hct 35.5 L (36.0-46.0) % MCV (80.0-98.0) fL MCH (27.0-32.0) pg MCHC (31.0-37.0) g/dL RDW Std Deviation (28.0-62.0) fl RDW Coeff of [place] (11.0-15.0) % Plt Count (150-400) K/uL MPV (7.40-12.00) fL Neut % (Auto) (48.0-80.0) % Lymph % (Auto) (16.0-40.0) % [place] % (Auto) (0.0-15.0) % Eos % (Auto) (0.0-7.0) % Baso % (Auto) (0.0-1.5) % Neut # (Auto) (1.4-5.7) K/uL Lymph # (Auto) (0.6-2.4) K/uL [place] # (Auto) (0.0-0.8) K/uL Eos # (Auto) (0.0-0.7) K/uL Baso # (Auto) (0.0-0.1) K/uL Nucleated RBC % /100WBC Nucleated RBCs # K/uL Sodium (136-145) mmol/L Potassium (3.5-5.1) mmol/L Chloride (98-107) mmol/L Carbon Dioxide (21.0-32.0) mmol/L BUN (7.0-18.0) mg/dL Creatinine (0.6-1.0) mg/dL Est Cr Clr Drug Dosing mL/min Estimated GFR (MDRD) ml/min Glucose (74-106) mg/dL Calcium (8.5-10.1) mg/dL Total Bilirubin (0.2-1.0) mg/dL AST (15-37) IU/L ALT (14-63) IU/L Alkaline Phosphatase (46-116) U/L Total Protein (6.4-8.2) g/dL Albumin (3.4-5.0) g/dL Globulin (2.6-4.0) g/dL Albumin/Globulin Ratio (0.9-1.6) Urine Color YELLOW Urine Appearance CLEAR Urine pH 7.0 (5.0-8.0) Ur Specific [place] 1.015 (1.001-1.035) Urine Protein NEGATIVE (NEGATIVE) mg/dL Urine Glucose (UA) NEGATIVE (NEGATIVE) mg/dL Urine Ketones NEGATIVE (NEGATIVE) mg/dL Urine Occult Blood NEGATIVE (NEGATIVE) Urine Nitrite NEGATIVE (NEGATIVE) Urine Bilirubin NEGATIVE (NEGATIVE) Urine Urobilinogen 0.2 (<2.0) EU/dL Ur Leukocyte Esterase NEGATIVE (NEGATIVE) Urine HCG, Qual (NEGATIVE) Blood Type A NEGATIVE Antibody Screen NEGATIVE Crossmatch See Detail Result Diagrams: 05/30/19 15:02 05/30/19 08:47 Sepsis Event Note - Evaluation Sepsis Screening Result: No Definite Risk - Focused Exam Vital Signs: Vital Signs Temp Temp Pulse Resp BP Pulse Ox 05/30/19 12:45 36.3 C 91 15 111/76 99 05/30/19 11:35 89 16 99/62 99 05/30/19 10:44 99 18 96/61 97 05/30/19 08:54 36.6 C 105 H 18 121/65 97 Date Exam was Performed: 05/30/19 Time Exam was Performed: 16:00 Consult PN Assessment/Plan Procedures: Procedures EMERGENCY DEPT VISIT (12/04/18) INFLUENZA ASSAY W/OPTIC (12/04/18) X-RAY EXAM CHEST 2 VIEWS (12/04/18) (1) GI bleed SNOMED Code(s): 09713329 Code(s): K92.2 - GASTROINTESTINAL HEMORRHAGE, UNSPECIFIED Current Visit: Yes Problem List Initiated/Reviewed/Updated: Yes My Orders Last 24 Hours: My Active Orders 05/30/19 15:25 OCCULT BLOOD DIAGNOSTIC [OP] Routine Plan: Agree with NPO, IV PPI, d/c NSAID use, IVF resuscitation, and q6hr hemoglobin and hematocrit checks. I performed a FOBT. Will be sent for diagnostic occult. H pylori stool antigen ordered. Will continue to monitor for signs of bleeding. Will continue to follow. Call with questions or concerns.
[2019-05-30] MEDS: Morphine 2 MG/ML Syringe IVPUSH PRN (17:34)
[2019-05-30] MEDS: SUMAtriptan 6 MG/0.5 ML SDV SUBCUT PRN (17:35)
[2019-05-30] MEDS: Ondansetron 4 MG/2 ML SDV IVPUSH PRN (20:51)
[2019-05-30] MEDS ORDERED: Pantoprazole 40 MG Vial IV SCH (21:00)
[2019-05-31] MEDS: Morphine 2 MG/ML Syringe IVPUSH PRN (04:26)
[2019-05-31] MEDS: Sodium Chloride 0.9% 1,000 ML IV SCH ×2 (06:28→14:22)
[2019-05-31 07:06] LABS: BLOOD UREA NITROGEN,BUN 18 mg/dL (7.0-18.0); CARBON DIOXIDE,CO2 25.5 mmol/L (21.0-32.0); CHLORIDE,CL 112 mmol/L (98-107); GLUCOSE RANDOM 88 mg/dL (74-106); POTASSIUM,K 3.8 mmol/L (3.5-5.1); SODIUM,NA 146 mmol/L (136-145)
[2019-05-31] MEDS: SUMAtriptan 6 MG/0.5 ML SDV SUBCUT PRN ×2 (08:59→18:14)
[2019-05-31] MEDS: Pantoprazole 40 MG in Sodium Chloride 0.9% 10 ML IV SCH ×2 (09:03→20:49)
[2019-05-31] MEDS: Ondansetron 4 MG/2 ML SDV IVPUSH PRN ×2 (09:09→18:30)
--- NOTE | 2019-05-31 09:36 | PCM.CONSN ---
- General Info Date of Service: 05/31/19 Functional Status: Reports: Pain Controlled, Tolerating Diet - Review of Systems General: Reports: No Symptoms HEENT: Reports: No Symptoms Pulmonary: Reports: No Symptoms Cardiovascular: Reports: No Symptoms Gastrointestinal: Reports: No Symptoms Genitourinary: Reports: No Symptoms - Patient Data Vitals - Most Recent: Last Vital Signs Temp 36.6 C 05/31/19 04:24 Pulse 72 05/31/19 04:24 Resp 16 05/31/19 04:24 BP 93/56 L 05/31/19 04:24 Pulse Ox 95 05/31/19 04:24 Orthostatic Blood Pressure [ 67/38 Standing] Orthostatic Blood Pressure [ 112/75 Sitting] Orthostatic Blood Pressure [ 108/75 Supine] Weight - Most Recent: 56.608 kg I&O - Last 24 Hours: Intake & Output 05/30/19 05/31/19 05/31/19 22:59 06:59 14:59 Intake Total 0 1624 Output Total 700 Balance -700 1624 Lab Results Last 24 Hours: Laboratory Results - last 24 hr 05/30/19 05/30/19 05/30/19 Range/Units 08:47 09:54 09:54 WBC (4.0-11.0) K/uL RBC (4.30-5.90) M/uL Hgb (12.0-16.0) g/dL Hct (36.0-46.0) % MCV (80.0-98.0) fL MCH (27.0-32.0) pg MCHC (31.0-37.0) g/dL RDW Std Deviation (28.0-62.0) fl RDW Coeff of Carmen (11.0-15.0) % Plt Count (150-400) K/uL MPV (7.40-12.00) fL Neut % (Auto) (48.0-80.0) % Lymph % (Auto) (16.0-40.0) % [place] % (Auto) (0.0-15.0) % Eos % (Auto) (0.0-7.0) % Baso % (Auto) (0.0-1.5) % Neut # (Auto) (1.4-5.7) K/uL Lymph # (Auto) (0.6-2.4) K/uL [place] # (Auto) (0.0-0.8) K/uL Eos # (Auto) (0.0-0.7) K/uL Baso # (Auto) (0.0-0.1) K/uL Nucleated RBC % /100WBC Nucleated RBCs # K/uL Sodium 144 (136-145) mmol/L Potassium 4.3 (3.5-5.1) mmol/L Chloride 105 (98-107) mmol/L Carbon Dioxide 28.9 (21.0-32.0) mmol/L BUN 40 H (7.0-18.0) mg/dL Creatinine 0.7 (0.6-1.0) mg/dL Est Cr Clr Drug Dosing 89.48 mL/min Estimated GFR (MDRD) > 60.0 ml/min Glucose 87 (74-106) mg/dL Calcium 8.4 L (8.5-10.1) mg/dL Total Bilirubin 0.3 (0.2-1.0) mg/dL AST 19 (15-37) IU/L ALT 23 (14-63) IU/L Alkaline Phosphatase 78 (46-116) U/L Total Protein 6.8 (6.4-8.2) g/dL Albumin 3.5 (3.4-5.0) g/dL Globulin 3.3 (2.6-4.0) g/dL Albumin/Globulin Ratio 1.1 (0.9-1.6) Urine Color YELLOW Urine Appearance CLEAR Urine pH 7.0 (5.0-8.0) Ur Specific [place] 1.015 (1.001-1.035) Urine Protein NEGATIVE (NEGATIVE) mg/dL Urine Glucose (UA) NEGATIVE (NEGATIVE) mg/dL Urine Ketones NEGATIVE (NEGATIVE) mg/dL Urine Occult Blood NEGATIVE (NEGATIVE) Urine Nitrite NEGATIVE (NEGATIVE) Urine Bilirubin NEGATIVE (NEGATIVE) Urine Urobilinogen 0.2 (<2.0) EU/dL Ur Leukocyte Esterase NEGATIVE (NEGATIVE) Urine HCG, Qual NEGATIVE (NEGATIVE) Blood Type Antibody Screen Crossmatch 05/30/19 05/30/19 05/30/19 Range/Units 11:43 15:02 23:43 WBC (4.0-11.0) K/uL RBC (4.30-5.90) M/uL Hgb 11.6 L 10.6 L (12.0-16.0) g/dL Hct 35.5 L 32.6 L (36.0-46.0) % MCV (80.0-98.0) fL MCH (27.0-32.0) pg MCHC (31.0-37.0) g/dL RDW Std Deviation (28.0-62.0) fl RDW Coeff of Carmen (11.0-15.0) % Plt Count (150-400) K/uL MPV (7.40-12.00) fL Neut % (Auto) (48.0-80.0) % Lymph % (Auto) (16.0-40.0) % [place] % (Auto) (0.0-15.0) % Eos % (Auto) (0.0-7.0) % Baso % (Auto) (0.0-1.5) % Neut # (Auto) (1.4-5.7) K/uL Lymph # (Auto) (0.6-2.4) K/uL [place] # (Auto) (0.0-0.8) K/uL Eos # (Auto) (0.0-0.7) K/uL Baso # (Auto) (0.0-0.1) K/uL Nucleated RBC % /100WBC Nucleated RBCs # K/uL Sodium (136-145) mmol/L Potassium (3.5-5.1) mmol/L Chloride (98-107) mmol/L Carbon Dioxide (21.0-32.0) mmol/L BUN (7.0-18.0) mg/dL Creatinine (0.6-1.0) mg/dL Est Cr Clr Drug Dosing mL/min Estimated GFR (MDRD) ml/min Glucose (74-106) mg/dL Calcium (8.5-10.1) mg/dL Total Bilirubin (0.2-1.0) mg/dL AST (15-37) IU/L ALT (14-63) IU/L Alkaline Phosphatase (46-116) U/L Total Protein (6.4-8.2) g/dL Albumin (3.4-5.0) g/dL Globulin (2.6-4.0) g/dL Albumin/Globulin Ratio (0.9-1.6) Urine Color Urine Appearance Urine pH (5.0-8.0) Ur Specific [place] (1.001-1.035) Urine Protein (NEGATIVE) mg/dL Urine Glucose (UA) (NEGATIVE) mg/dL Urine Ketones (NEGATIVE) mg/dL Urine Occult Blood (NEGATIVE) Urine Nitrite (NEGATIVE) Urine Bilirubin (NEGATIVE) Urine Urobilinogen (<2.0) EU/dL Ur Leukocyte Esterase (NEGATIVE) Urine HCG, Qual (NEGATIVE) Blood Type A NEGATIVE Antibody Screen NEGATIVE Crossmatch See Detail 05/31/19 05/31/19 Range/Units 06:24 06:24 WBC 7.57 (4.0-11.0) K/uL RBC 3.55 L (4.30-5.90) M/uL Hgb 10.0 L (12.0-16.0) g/dL Hct 31.4 L (36.0-46.0) % MCV 88.5 (80.0-98.0) fL MCH 28.2 (27.0-32.0) pg MCHC 31.8 (31.0-37.0) g/dL RDW Std Deviation 41.8 (28.0-62.0) fl RDW Coeff of Carmen 13 (11.0-15.0) % Plt Count 259 (150-400) K/uL MPV 11.40 (7.40-12.00) fL Neut % (Auto) 36.0 L (48.0-80.0) % Lymph % (Auto) 55.0 H (16.0-40.0) % [place] % (Auto) 6.7 (0.0-15.0) % Eos % (Auto) 2.0 (0.0-7.0) % Baso % (Auto) 0.3 (0.0-1.5) % Neut # (Auto) 2.7 (1.4-5.7) K/uL Lymph # (Auto) 4.2 H (0.6-2.4) K/uL [place] # (Auto) 0.5 (0.0-0.8) K/uL Eos # (Auto) 0.2 (0.0-0.7) K/uL Baso # (Auto) 0.0 (0.0-0.1) K/uL Nucleated RBC % 0.0 /100WBC Nucleated RBCs # 0 K/uL Sodium 146 H (136-145) mmol/L Potassium 3.8 (3.5-5.1) mmol/L Chloride 112 H (98-107) mmol/L Carbon Dioxide 25.5 (21.0-32.0) mmol/L BUN 18 (7.0-18.0) mg/dL Creatinine 0.8 (0.6-1.0) mg/dL Est Cr Clr Drug Dosing 78.30 mL/min Estimated GFR (MDRD) > 60.0 ml/min Glucose 88 (74-106) mg/dL Calcium 8.2 L (8.5-10.1) mg/dL Total Bilirubin (0.2-1.0) mg/dL AST (15-37) IU/L ALT (14-63) IU/L Alkaline Phosphatase (46-116) U/L Total Protein (6.4-8.2) g/dL Albumin (3.4-5.0) g/dL Globulin (2.6-4.0) g/dL Albumin/Globulin Ratio (0.9-1.6) Urine Color Urine Appearance Urine pH (5.0-8.0) Ur Specific [place] (1.001-1.035) Urine Protein (NEGATIVE) mg/dL Urine Glucose (UA) (NEGATIVE) mg/dL Urine Ketones (NEGATIVE) mg/dL Urine Occult Blood (NEGATIVE) Urine Nitrite (NEGATIVE) Urine Bilirubin (NEGATIVE) Urine Urobilinogen (<2.0) EU/dL Ur Leukocyte Esterase (NEGATIVE) Urine HCG, Qual (NEGATIVE) Blood Type Antibody Screen Crossmatch Med Orders - Current: Current Medications Sodium Chloride (Normal Saline) 1,000 mls @ 125 mls/hr IV Q8H [facility] Last Admin: 05/31/19 06:28 Dose: 125 mls/hr Pantoprazole Sodium 40 mg/ (Sodium Chloride) 10 mls @ 200 mls/hr IV Q12HR [facility] Last Admin: 05/31/19 09:03 Dose: 200 mls/hr Morphine Sulfate (Morphine) 2 mg IVPUSH Q4H PRN PRN Reason: Pain Last Admin: 05/31/19 04:26 Dose: 2 mg Ondansetron HCl (Zofran) 4 mg IVPUSH Q4H PRN PRN Reason: Nausea Last Admin: 05/31/19 09:09 Dose: 4 mg Discontinued Medications Famotidine (Pepcid) 20 mg IVPUSH ONETIME ONE Stop: 05/30/19 11:15 Last Admin: 05/30/19 11:33 Dose: 20 mg Sodium Chloride (Normal Saline) 1,000 mls @ 1,000 mls/hr IV .Bolus ONE Stop: 05/30/19 10:13 Last Admin: 05/30/19 09:36 Dose: 1,000 mls/hr Sodium Chloride (Normal Saline) 1,000 mls @ 50 mls/hr IV Q20H [facility] Ondansetron HCl (Zofran) 4 mg IVPUSH ONETIME ONE Stop: 05/30/19 09:16 Last Admin: 05/30/19 09:36 Dose: 4 mg Pantoprazole Sodium (Protonix Iv) 40 mg IV Q12HR [facility] Last Admin: 05/30/19 20:41 Dose: 40 mg Sumatriptan Succinate (Imitrex) 6 mg SUBCUT Q2H PRN PRN Reason: migraine Last Admin: 05/31/19 08:59 Dose: 6 mg - Exam Quality Assessment: Supplemental Oxygen General: Alert, Oriented HEENT: Pupils Equal, Pupils Reactive Lungs: Normal Respiratory Effort Cardiovascular: Regular Rate GI/Abdominal Exam: Soft, Non-Tender, No Distention, No Mass Sepsis Event Note - Evaluation Sepsis Screening Result: No Definite Risk - Focused Exam Vital Signs: Vital Signs Temp Pulse Resp BP Pulse Ox 05/31/19 04:24 36.6 C 72 16 93/56 L 95 05/30/19 23:50 37.3 C 82 16 97/55 L 95 Date Exam was Performed: 05/31/19 Time Exam was Performed: 09:36 Consult PN Assessment/Plan Procedures: Procedures EMERGENCY DEPT VISIT (12/04/18) INFLUENZA ASSAY W/OPTIC (12/04/18) X-RAY EXAM CHEST 2 VIEWS (12/04/18) (1) GI bleed SNOMED Code(s): 92835546 Code(s): K92.2 - GASTROINTESTINAL HEMORRHAGE, UNSPECIFIED Current Visit: Yes Problem List Initiated/Reviewed/Updated: Yes Plan: Patient has not had a BM since admission. Would still check for H pylori if she has a BM. Stool card did not have enough of a sample to test. Subjectively she feels better today. Hgb decreased to 10 today which is likely dilutional. Continue PPI treatment but can switch to oral. Can consider adding sucralfate or carafate QID. Ok to advance diet as tolerated. Repeat orthostatics. If no longer symptomatic will hold off scope at this time. If same or worse please let me know. Otherwise f/u in clinic in 2-4 weeks and establish PCP. Will sign off. Call with questions or concerns.
--- NOTE | 2019-05-31 10:07 | PCM.PN ---
- General Info Date of Service: 05/31/19 Admission Dx/Problem (Free Text): Admission Diagnosis/Problem Admission Diagnosis/Problem GI bleed not requiring more than 4 units of blood in 24 hours, ICU, or surgery Subjective Update: Feeling ok this morning, reports migraine is returning. No chest pain. Mild abdominal pain. No stools or emesis since admission. Mild nausea Functional Status: Reports: Pain Controlled, Ambulating, Urinating - Review of Systems General: Reports: Malaise. Denies: Fatigue HEENT: Reports: Headaches Pulmonary: Reports: No Symptoms. Denies: Shortness of Breath Cardiovascular: Reports: No Symptoms. Denies: Chest Pain Gastrointestinal: Reports: Abdominal Pain (LUQ and LLQ), Nausea. Denies: Vomiting Genitourinary: Reports: No Symptoms. Denies: Dysuria, Frequency, Burning Musculoskeletal: Reports: No Symptoms Skin: Reports: No Symptoms Neurological: Reports: No Symptoms Psychiatric: Reports: No Symptoms - Patient Data Vitals - Most Recent: Last Vital Signs Temp 98 F 05/31/19 04:24 Pulse 72 05/31/19 04:24 Resp 16 05/31/19 04:24 BP 93/56 L 05/31/19 04:24 Pulse Ox 95 05/31/19 04:24 Orthostatic Blood Pressure [ 67/38 Standing] Orthostatic Blood Pressure [ 112/75 Sitting] Orthostatic Blood Pressure [ 108/75 Supine] Weight - Most Recent: 56.608 kg I&O - Last 24 Hours: Intake & Output 05/30/19 05/31/19 05/31/19 22:59 06:59 14:59 Intake Total 0 1624 Output Total 700 Balance -700 1624 Lab Results Last 24 Hours: Laboratory Results - last 24 hr 05/30/19 05/30/19 05/30/19 Range/Units 09:54 09:54 11:43 WBC (4.0-11.0) K/uL RBC (4.30-5.90) M/uL Hgb (12.0-16.0) g/dL Hct (36.0-46.0) % MCV (80.0-98.0) fL MCH (27.0-32.0) pg MCHC (31.0-37.0) g/dL RDW Std Deviation (28.0-62.0) fl RDW Coeff of Carmen (11.0-15.0) % Plt Count (150-400) K/uL MPV (7.40-12.00) fL Neut % (Auto) (48.0-80.0) % Lymph % (Auto) (16.0-40.0) % [place] % (Auto) (0.0-15.0) % Eos % (Auto) (0.0-7.0) % Baso % (Auto) (0.0-1.5) % Neut # (Auto) (1.4-5.7) K/uL Lymph # (Auto) (0.6-2.4) K/uL [place] # (Auto) (0.0-0.8) K/uL Eos # (Auto) (0.0-0.7) K/uL Baso # (Auto) (0.0-0.1) K/uL Nucleated RBC % /100WBC Nucleated RBCs # K/uL Sodium (136-145) mmol/L Potassium (3.5-5.1) mmol/L Chloride (98-107) mmol/L Carbon Dioxide (21.0-32.0) mmol/L BUN (7.0-18.0) mg/dL Creatinine (0.6-1.0) mg/dL Est Cr Clr Drug Dosing mL/min Estimated GFR (MDRD) ml/min Glucose (74-106) mg/dL Calcium (8.5-10.1) mg/dL Urine Color YELLOW Urine Appearance CLEAR Urine pH 7.0 (5.0-8.0) Ur Specific [place] 1.015 (1.001-1.035) Urine Protein NEGATIVE (NEGATIVE) mg/dL Urine Glucose (UA) NEGATIVE (NEGATIVE) mg/dL Urine Ketones NEGATIVE (NEGATIVE) mg/dL Urine Occult Blood NEGATIVE (NEGATIVE) Urine Nitrite NEGATIVE (NEGATIVE) Urine Bilirubin NEGATIVE (NEGATIVE) Urine Urobilinogen 0.2 (<2.0) EU/dL Ur Leukocyte Esterase NEGATIVE (NEGATIVE) Urine HCG, Qual NEGATIVE (NEGATIVE) Blood Type A NEGATIVE Antibody Screen NEGATIVE Crossmatch See Detail 05/30/19 05/30/19 05/31/19 Range/Units 15:02 23:43 06:24 WBC 7.57 (4.0-11.0) K/uL RBC 3.55 L (4.30-5.90) M/uL Hgb 11.6 L 10.6 L 10.0 L (12.0-16.0) g/dL Hct 35.5 L 32.6 L 31.4 L (36.0-46.0) % MCV 88.5 (80.0-98.0) fL MCH 28.2 (27.0-32.0) pg MCHC 31.8 (31.0-37.0) g/dL RDW Std Deviation 41.8 (28.0-62.0) fl RDW Coeff of Carmen 13 (11.0-15.0) % Plt Count 259 (150-400) K/uL MPV 11.40 (7.40-12.00) fL Neut % (Auto) 36.0 L (48.0-80.0) % Lymph % (Auto) 55.0 H (16.0-40.0) % [place] % (Auto) 6.7 (0.0-15.0) % Eos % (Auto) 2.0 (0.0-7.0) % Baso % (Auto) 0.3 (0.0-1.5) % Neut # (Auto) 2.7 (1.4-5.7) K/uL Lymph # (Auto) 4.2 H (0.6-2.4) K/uL [place] # (Auto) 0.5 (0.0-0.8) K/uL Eos # (Auto) 0.2 (0.0-0.7) K/uL Baso # (Auto) 0.0 (0.0-0.1) K/uL Nucleated RBC % 0.0 /100WBC Nucleated RBCs # 0 K/uL Sodium (136-145) mmol/L Potassium (3.5-5.1) mmol/L Chloride (98-107) mmol/L Carbon Dioxide (21.0-32.0) mmol/L BUN (7.0-18.0) mg/dL Creatinine (0.6-1.0) mg/dL Est Cr Clr Drug Dosing mL/min Estimated GFR (MDRD) ml/min Glucose (74-106) mg/dL Calcium (8.5-10.1) mg/dL Urine Color Urine Appearance Urine pH (5.0-8.0) Ur Specific [place] (1.001-1.035) Urine Protein (NEGATIVE) mg/dL Urine Glucose (UA) (NEGATIVE) mg/dL Urine Ketones (NEGATIVE) mg/dL Urine Occult Blood (NEGATIVE) Urine Nitrite (NEGATIVE) Urine Bilirubin (NEGATIVE) Urine Urobilinogen (<2.0) EU/dL Ur Leukocyte Esterase (NEGATIVE) Urine HCG, Qual (NEGATIVE) Blood Type Antibody Screen Crossmatch 05/31/19 Range/Units 06:24 WBC (4.0-11.0) K/uL RBC (4.30-5.90) M/uL Hgb (12.0-16.0) g/dL Hct (36.0-46.0) % MCV (80.0-98.0) fL MCH (27.0-32.0) pg MCHC (31.0-37.0) g/dL RDW Std Deviation (28.0-62.0) fl RDW Coeff of [place] (11.0-15.0) % Plt Count (150-400) K/uL MPV (7.40-12.00) fL Neut % (Auto) (48.0-80.0) % Lymph % (Auto) (16.0-40.0) % [place] % (Auto) (0.0-15.0) % Eos % (Auto) (0.0-7.0) % Baso % (Auto) (0.0-1.5) % Neut # (Auto) (1.4-5.7) K/uL Lymph # (Auto) (0.6-2.4) K/uL [place] # (Auto) (0.0-0.8) K/uL Eos # (Auto) (0.0-0.7) K/uL Baso # (Auto) (0.0-0.1) K/uL Nucleated RBC % /100WBC Nucleated RBCs # K/uL Sodium 146 H (136-145) mmol/L Potassium 3.8 (3.5-5.1) mmol/L Chloride 112 H (98-107) mmol/L Carbon Dioxide 25.5 (21.0-32.0) mmol/L BUN 18 (7.0-18.0) mg/dL Creatinine 0.8 (0.6-1.0) mg/dL Est Cr Clr Drug Dosing 78.30 mL/min Estimated GFR (MDRD) > 60.0 ml/min Glucose 88 (74-106) mg/dL Calcium 8.2 L (8.5-10.1) mg/dL Urine Color Urine Appearance Urine pH (5.0-8.0) Ur Specific [place] (1.001-1.035) Urine Protein (NEGATIVE) mg/dL Urine Glucose (UA) (NEGATIVE) mg/dL Urine Ketones (NEGATIVE) mg/dL Urine Occult Blood (NEGATIVE) Urine Nitrite (NEGATIVE) Urine Bilirubin (NEGATIVE) Urine Urobilinogen (<2.0) EU/dL Ur Leukocyte Esterase (NEGATIVE) Urine HCG, Qual (NEGATIVE) Blood Type Antibody Screen Crossmatch Med Orders - Current: Current Medications Sodium Chloride (Normal Saline) 1,000 mls @ 125 mls/hr IV Q8H [facility] Last Admin: 05/31/19 06:28 Dose: 125 mls/hr Pantoprazole Sodium 40 mg/ (Sodium Chloride) 10 mls @ 200 mls/hr IV Q12HR [facility] Last Admin: 05/31/19 09:03 Dose: 200 mls/hr Morphine Sulfate (Morphine) 2 mg IVPUSH Q4H PRN PRN Reason: Pain Last Admin: 05/31/19 04:26 Dose: 2 mg Ondansetron HCl (Zofran) 4 mg IVPUSH Q4H PRN PRN Reason: Nausea Last Admin: 05/31/19 09:09 Dose: 4 mg Sucralfate (Carafate) 1 gm PO QIDACANDBED [facility] Discontinued Medications Famotidine (Pepcid) 20 mg IVPUSH ONETIME ONE Stop: 05/30/19 11:15 Last Admin: 05/30/19 11:33 Dose: 20 mg Sodium Chloride (Normal Saline) 1,000 mls @ 1,000 mls/hr IV .Bolus ONE Stop: 05/30/19 10:13 Last Admin: 05/30/19 09:36 Dose: 1,000 mls/hr Sodium Chloride (Normal Saline) 1,000 mls @ 50 mls/hr IV Q20H [facility] Ondansetron HCl (Zofran) 4 mg IVPUSH ONETIME ONE Stop: 05/30/19 09:16 Last Admin: 05/30/19 09:36 Dose: 4 mg Pantoprazole Sodium (Protonix Iv) 40 mg IV Q12HR [facility] Last Admin: 05/30/19 20:41 Dose: 40 mg Sumatriptan Succinate (Imitrex) 6 mg SUBCUT Q2H PRN PRN Reason: migraine Last Admin: 05/31/19 08:59 Dose: 6 mg - Exam General: Alert, Oriented, Cooperative, No Acute Distress Lungs: Clear to Auscultation, Normal Respiratory Effort Cardiovascular: Regular Rate, Regular Rhythm GI/Abdominal Exam: Normal Bowel Sounds, Soft, Tender (scant tenderness to L abdomen, similar to yesterday) Back Exam: Normal Inspection, Full Range of Motion Extremities: Normal Inspection, Normal Range of Motion, Non-Tender, No Pedal Edema Neurological: No New Focal Deficit Psy/Mental Status: Alert, Normal Affect, Normal Mood Sepsis Event Note - Evaluation Sepsis Screening Result: No Definite Risk - Focused Exam Vital Signs: Vital Signs Temp Pulse Resp BP Pulse Ox 05/31/19 04:24 98 F 72 16 93/56 L 95 05/30/19 23:50 99.1 F 82 16 97/55 L 95 Date Exam was Performed: 05/31/19 Time Exam was Performed: 11:06 - Problem List & Annotations (1) GI bleed SNOMED Code(s): 74479538 Code(s): K92.2 - GASTROINTESTINAL HEMORRHAGE, UNSPECIFIED Status: Acute Current Visit: Yes (2) History of asthma SNOMED Code(s): 710348566 Code(s): Z87.09 - PERSONAL HISTORY OF OTHER DISEASES OF THE RESPIRATORY SYSTEM Status: Chronic Current Visit: Yes (3) Migraine SNOMED Code(s): 07330519 Code(s): G43.909 - MIGRAINE, UNSP, NOT INTRACTABLE, WITHOUT STATUS MIGRAINOSUS Status: Acute Current Visit: Yes Qualifiers: Migraine type: without aura Status migrainosus presence: without status migrainosus - Problem List Review Problem List Initiated/Reviewed/Updated: Yes - My Orders Last 24 Hours: My Active Orders 05/30/19 11:43 RED BLOOD CELLS LP [BBK] Routine 05/30/19 14:33 Oxygen Therapy [RC] PRN Up With Assistance [RC] ASDIRECTED VTE/DVT Education [RC] PER UNIT ROUTINE Vital Signs [RC] Q4H Ondansetron [Zofran] 4 mg IVPUSH Q4H PRN Resuscitation Status Routine 05/30/19 14:34 Sequential Compression Device [OM.PC] Per Unit Routine 05/30/19 14:35 Antiembolic Devices [RC] PER UNIT ROUTINE 05/30/19 14:36 Telemetry Monitoring [Cardiac Monitoring] [RC] Q8H 05/30/19 14:38 Notify Provider Consults [RC] ASDIRECTED Consult to Physician [CONS] Routine 05/30/19 14:45 Sodium Chloride 0.9% [Normal Saline] 1,000 ml IV Q8H 05/30/19 14:59 H PYLORI STOOL ANTIGEN [MREF] Urgent 05/30/19 16:11 Morphine 2 mg IVPUSH Q4H PRN 05/31/19 09:00 Pantoprazole [ProTONIX IV] 40 mg Sodium Chloride 0.9% [Normal Saline] 10 ml IV Q12HR 05/31/19 09:07 Orthostatic Vital Signs [RC] ONETIME 05/31/19 11:30 Sucralfate [Carafate] 1 gm PO QIDACANDBED 05/31/19 Breakfast Clear Liquid Diet [DIET] - Plan Plan:: This 44 year old female admitted with GI bleed 1. GI Bleeding: - H/H this morning 10.0, some dilational effect due to fluids. - Monitor HH this afternoon and in am. - Monitor Orthostatic BP today, possible DC fluids if stable - Cl diet and monitor - Protonix 40 mg IV BID, add Carafate today. - HOLD NSAIDs - Check H pylori stool antigen - Type and Screen - Counseled on NSAID use and smoking. 2. Migraine: - Imitrex given, will monitor - Has been using NSAIDs due to headaches, which are chronic - Will need Imitrex prescriptions to avoid NSAID use after GI bleed VTE prophylaxis: SDCs Dispo: 1 day
[2019-05-31] MEDS: Sucralfate Suspension 1 GM/10 ML Cup PO SCH ×3 (10:57→20:48)
[2019-06-01 06:23] LABS: BLOOD UREA NITROGEN,BUN 8 mg/dL (7.0-18.0); CARBON DIOXIDE,CO2 30.3 mmol/L (21.0-32.0); CHLORIDE,CL 110 mmol/L (98-107); GLUCOSE RANDOM 94 mg/dL (74-106); POTASSIUM,K 3.4 mmol/L (3.5-5.1); SODIUM,NA 146 mmol/L (136-145)
[2019-06-01] MEDS: Sucralfate Suspension 1 GM/10 ML Cup PO SCH ×2 (06:38→13:12)
[2019-06-01] MEDS ORDERED: Potassium Chloride 20 MEQ Tab.ER PO ONE ×2 (07:56→10:30)
[2019-06-01] MEDS: SUMAtriptan 6 MG/0.5 ML SDV SUBCUT PRN (08:14)
[2019-06-01] MEDS: Ondansetron 4 MG/2 ML SDV IVPUSH PRN (08:17)
[2019-06-01] MEDS: Pantoprazole 40 MG in Sodium Chloride 0.9% 10 ML IV SCH (10:25)
--- NOTE | 2019-06-01 10:53 | PCM.DCSUM1 ---
<Thai Bradley M - Last Filed: 06/01/19 14:48> Discharge Summary - Hospital Course Free Text/Narrative:: 44-year-old female admitted for GI bleed. She has a PMH of migraines for which she reported taking NSAID's daily. Hgb on admission was 12.3. CT abd/pelvis was negative. CXR was negative. Orthostatic vitals signs were positive. General surgery was consulted who recommended PPI BID, carafate QID and recommended outpatient follow-up for possible endoscopy. Patient's Hgb remained stable at 9.4 on day of discharge and there was some hemodilutional component as she received IV fluids during her hospitalization. There were no instances of vomiting blood or bloody stools during her hospitalization. Patient counselled on not taking any more NSAID's and tobacco cessation. Furthermore, patient complained of migraines and was given Imitrex which helped relieve her symptoms. Patient discharged in stable condition and advised to follow-up with PCP and general surgeon Dr. Newberry. - Discharge Data Discharge Date: 06/01/19 Discharge Disposition: Home, Self-Care 01 Condition: Stable - Referral to Home Health Primary Care Physician: PCP Unobtainable - Patient Summary/Data Consults: Consultations 05/30/19 14:38 Consult to Physician [CONS] Routine - Patient Instructions Diet: Usual Diet as Tolerated Activity: As Tolerated Notify Provider of: Fever, Increased Pain, Swelling and Redness, Drainage, Nausea and/or Vomiting - Discharge Plan *PRESCRIPTION DRUG MONITORING PROGRAM REVIEWED*: Not Applicable *COPY OF PRESCRIPTION DRUG MONITORING REPORT IN PATIENT RON: Not Applicable Prescriptions/Med Rec: Pantoprazole [ProTONIX] 40 mg PO BID 14 Days #28 tab.cr Sucralfate [Carafate] 1 gm PO QIDACANDBED 14 Days #56 cup SUMAtriptan [Imitrex] 50 mg PO ASDIRECTED PRN 5 Days #10 tablet PRN Reason: Headache Home Medications: Home Meds Pantoprazole [ProTONIX] 40 mg PO BID 14 Days #28 tab.cr 06/01/19 [Rx] SUMAtriptan [Imitrex] 50 mg PO ASDIRECTED PRN 5 Days #10 tablet 06/01/19 [Rx] Sucralfate [Carafate] 1 gm PO QIDACANDBED 14 Days #56 cup 06/01/19 [Rx] Patient Handouts: Sumatriptan tablets, Sucralfate tablets, Gastrointestinal Bleeding, [id number], Pantoprazole tablets Referrals: [facility] [Outside] Summer Newberry MD [Physician] - 06/16/19 9:00 am Kelli Turner PA [Physician Raw Material Planner] - 06/07/19 10:30 am - Discharge Summary/Plan Comment DC Time >30 min.: No - Patient Data Vitals - Most Recent: Last Vital Signs Temp 98.5 F 06/01/19 08:00 Pulse 68 06/01/19 08:00 Resp 14 06/01/19 08:00 BP 109/63 06/01/19 08:00 Pulse Ox 95 06/01/19 08:00 Orthostatic Blood Pressure [ 95/65 Standing] Orthostatic Blood Pressure [ 97/60 Sitting] Orthostatic Blood Pressure [ 110/57 Supine] Weight - Most Recent: 56.608 kg I&O - Last 24 hours: Intake & Output 05/31/19 06/01/19 06/01/19 22:59 06:59 14:59 Intake Total 950 Output Total 1600 Balance -650 Lab Results - Last 24 hrs: Laboratory Results - last 24 hr 05/31/19 06/01/19 06/01/19 Range/Units 15:03 05:38 05:38 WBC 5.63 (4.0-11.0) K/uL RBC 3.31 L (4.30-5.90) M/uL Hgb 9.2 L 9.4 L (12.0-16.0) g/dL Hct 28.9 L 29.2 L (36.0-46.0) % MCV 88.2 (80.0-98.0) fL MCH 28.4 (27.0-32.0) pg MCHC 32.2 (31.0-37.0) g/dL RDW Std Deviation 40.7 (28.0-62.0) fl RDW Coeff of Carmen 13 (11.0-15.0) % Plt Count 228 (150-400) K/uL MPV 10.90 (7.40-12.00) fL Neut % (Auto) 33.9 L (48.0-80.0) % Lymph % (Auto) 55.8 H (16.0-40.0) % [place] % (Auto) 6.9 (0.0-15.0) % Eos % (Auto) 3.0 (0.0-7.0) % Baso % (Auto) 0.4 (0.0-1.5) % Neut # (Auto) 1.9 (1.4-5.7) K/uL Lymph # (Auto) 3.1 H (0.6-2.4) K/uL [place] # (Auto) 0.4 (0.0-0.8) K/uL Eos # (Auto) 0.2 (0.0-0.7) K/uL Baso # (Auto) 0.0 (0.0-0.1) K/uL Nucleated RBC % 0.0 /100WBC Nucleated RBCs # 0 K/uL Sodium 146 H (136-145) mmol/L Potassium 3.4 L (3.5-5.1) mmol/L Chloride 110 H (98-107) mmol/L Carbon Dioxide 30.3 (21.0-32.0) mmol/L BUN 8 (7.0-18.0) mg/dL Creatinine 0.7 (0.6-1.0) mg/dL Est Cr Clr Drug Dosing 89.48 mL/min Estimated GFR (MDRD) > 60.0 ml/min Glucose 94 (74-106) mg/dL Calcium 8.1 L (8.5-10.1) mg/dL Med Orders - Current: Current Medications Pantoprazole Sodium 40 mg/ (Sodium Chloride) 10 mls @ 200 mls/hr IV Q12HR [facility] Last Admin: 06/01/19 10:25 Dose: 200 mls/hr Morphine Sulfate (Morphine) 2 mg IVPUSH Q4H PRN PRN Reason: Pain Last Admin: 05/31/19 04:26 Dose: 2 mg Ondansetron HCl (Zofran) 4 mg IVPUSH Q4H PRN PRN Reason: Nausea Last Admin: 06/01/19 08:17 Dose: 4 mg Sucralfate (Carafate) 1 gm PO QIDACANDBED [facility] Last Admin: 06/01/19 06:38 Dose: 1 gm Discontinued Medications Famotidine (Pepcid) 20 mg IVPUSH ONETIME ONE Stop: 03/31/20 11:15 Last Admin: 05/30/19 11:33 Dose: 20 mg Sodium Chloride (Normal Saline) 1,000 mls @ 1,000 mls/hr IV .Bolus ONE Stop: 05/30/19 10:13 Last Admin: 05/30/19 09:36 Dose: 1,000 mls/hr Sodium Chloride (Normal Saline) 1,000 mls @ 50 mls/hr IV Q20H [facility] Sodium Chloride (Normal Saline) 1,000 mls @ 125 mls/hr IV Q8H [facility] Last Admin: 05/31/19 14:22 Dose: 125 mls/hr Ondansetron HCl (Zofran) 4 mg IVPUSH ONETIME ONE Stop: 05/30/19 09:16 Last Admin: 05/30/19 09:36 Dose: 4 mg Pantoprazole Sodium (Protonix Iv) 40 mg IV Q12HR [facility] Last Admin: 05/30/19 20:41 Dose: 40 mg Potassium Chloride (Klor-Con M20) 40 meq PO ONETIME ONE Stop: 06/01/19 10:31 Last Admin: 06/01/19 10:24 Dose: 40 meq Sumatriptan Succinate (Imitrex) 6 mg SUBCUT Q2H PRN PRN Reason: migraine Last Admin: 05/31/19 08:59 Dose: 6 mg Sumatriptan Succinate (Imitrex) 6 mg SUBCUT Q2H PRN PRN Reason: migraine Last Admin: 06/01/19 08:14 Dose: 6 mg <Quique Friedman J - Last Filed: 06/03/19 20:07> Discharge Summary - Referral to Home Health Primary Care Physician: PCP Unobtainable - Patient Summary/Data Consults: Consultations 05/30/19 14:38 Consult to Physician [CONS] Routine - Patient Data Vitals - Most Recent: Last Vital Signs Temp 36.9 C 06/01/19 08:00 Pulse 68 06/01/19 08:00 Resp 14 06/01/19 08:00 BP 109/63 06/01/19 08:00 Pulse Ox 95 06/01/19 08:00 Orthostatic Blood Pressure [ 95/65 Standing] Orthostatic Blood Pressure [ 97/60 Sitting] Orthostatic Blood Pressure [ 110/57 Supine] Med Orders - Current: Current Medications Discontinued Medications Famotidine (Pepcid) 20 mg IVPUSH ONETIME ONE Stop: 05/30/19 11:15 Last Admin: 05/30/19 11:33 Dose: 20 mg Sodium Chloride (Normal Saline) 1,000 mls @ 1,000 mls/hr IV .Bolus ONE Stop: 05/30/19 10:13 Last Admin: 05/30/19 09:36 Dose: 1,000 mls/hr Sodium Chloride (Normal Saline) 1,000 mls @ 50 mls/hr IV Q20H [facility] Sodium Chloride (Normal Saline) 1,000 mls @ 125 mls/hr IV Q8H [facility] Last Admin: 05/31/19 14:22 Dose: 125 mls/hr Pantoprazole Sodium 40 mg/ (Sodium Chloride) 10 mls @ 200 mls/hr IV Q12HR [facility] Last Admin: 06/01/19 10:25 Dose: 200 mls/hr Morphine Sulfate (Morphine) 2 mg IVPUSH Q4H PRN PRN Reason: Pain Last Admin: 05/31/19 04:26 Dose: 2 mg Ondansetron HCl (Zofran) 4 mg IVPUSH ONETIME ONE Stop: 05/30/19 09:16 Last Admin: 05/30/19 09:36 Dose: 4 mg Ondansetron HCl (Zofran) 4 mg IVPUSH Q4H PRN PRN Reason: Nausea Last Admin: 06/01/19 08:17 Dose: 4 mg Pantoprazole Sodium (Protonix Iv) 40 mg IV Q12HR [facility] Last Admin: 05/30/19 20:41 Dose: 40 mg Potassium Chloride (Klor-Con M20) 40 meq PO ONETIME ONE Stop: 06/01/19 10:31 Last Admin: 06/01/19 10:24 Dose: 40 meq Sucralfate (Carafate) 1 gm PO QIDACANDBED [facility] Last Admin: 06/01/19 13:12 Dose: Not Given Sumatriptan Succinate (Imitrex) 6 mg SUBCUT Q2H PRN PRN Reason: migraine Last Admin: 05/31/19 08:59 Dose: 6 mg Sumatriptan Succinate (Imitrex) 6 mg SUBCUT Q2H PRN PRN Reason: migraine Last Admin: 06/01/19 08:14 Dose: 6 mg - Free Text/Narrative Note: I have seen and examined the patient. I have discussed findings and treatment plan with resident. I agree with the assessment and plan as outlined in the following note.
== END 2019-06-01 11:50 | disposition home or self-care (01) | DRG 379 ==
LOC: MW.ED 08:40 → MW.MS 11:46
PROVIDERS: ADMIT Internal Medicine; ATTEND Internal Medicine
DX: K92.2 Gastrointestinal hemorrhage, unspecified (principal); G43.909 Migraine, unspecified, not intractable, without status migrainosus; J45.909 Unspecified asthma, uncomplicated; F41.9 Anxiety disorder, unspecified; F43.10 Post-traumatic stress disorder, unspecified; F17.200 Nicotine dependence, unspecified, uncomplicated; Z88.6 Allergy status to analgesic agent; Z88.5 Allergy status to narcotic agent; Z88.2 Allergy status to sulfonamides; Z71.6 Tobacco abuse counseling
CPT/HCPCS: 36415; 71045; 71045-26; 74176; 74176-26; 80048; 80053; 81003; 81025; 85014; 85018; 85025; 86850; 86900; 86901; 86920; 86921; 86922; 96361; 96374; 96375; 99285-25; A9270-GY; C9113; J2270; J2405; J3030; J3490; J7030; J7050